=== PATIENT | female | born 1995 | race Caucasian/White ===

== ENCOUNTER → 2018-01-28 23:05 | Observation (INO) ==
[2018-01-28 22:59] LABS: Bilirubin,Urine Negative (Negative); Blood,Urine Negative (Negative); Clarity,Urine Clear (Clear); Color,Urine Yellow (Yellow); Glucose,Urine (UA) Normal (Normal); Ketones,Urine Negative (Negative); Leukocyte Esterase,Urine Trace (Negative); Nitrite,Urine Negative (Negative); Protein,Urine Negative (Neg-Trace); Specific Gravity,Urine < 1.005 (1.010-1.025); Urobilinogen,Urine Normal (Normal)
--- NOTE | 2018-01-28 23:02 | OB/GYN Progress Note ---
Date of Encounter: 01/29/18 Time of Encounter: 22:58 - Assessment and Plan (1) 29 weeks gestation of Status: Acute (2) Encounter for suspected PROM, with rupture of membranes not found Status: Acute Pt states back pain has stopped since arrival,- CVA tenderness, UA negative, Speculum exam shows normal white vaginal discharge of , ferning negative. Cervix closed. Discharged home with and when to return to triage precautions. Pt verbalizes understanding. Subjective - Subjective Interval history: 29+2 presents to triage with complaints of back pain and leaking of fluid. Pt states at 2130 this evening she was sitting outside, had sharp pain in her back and then stood up and her shorts were wet. Has had occasional back pain since. Reports good movement, denies vaginal bleeding. Antepartum ROS: loss of fluid, movement normal, contractions, no vaginal bleeding Objective - Vital Signs Vital Signs: Intake and Output 01/28/18 01/28/18 01/28/18 07:59 15:59 23:59 Other: Weight 112.037 kg Patient Weight 01/28/18 23:59 Weight 112.037 kg - Exam FHR: auscultation normal FHR comments: Baseline 135 Abdomen: Present: soft, gravid Cervical dilation: Closed/thick/high
[2018-01-28 23:11] LABS: Amphetamine Screen,Urine Negative ng/mL (Cutoff=1000); Barbiturate Screen,Urine Negative ng/mL (Cutoff=200); Benzodiazepines Screen,Urine Negative ng/mL (Cutoff=200); Cannabinoid Screen,Urine Negative ng/mL (Cutoff = 50); Cocaine Screen,Urine Negative ng/mL (Cutoff= 300); Opiate Screen,Urine Negative ng/mL (Cutoff=300); Phencyclidine Screen,Urine Negative ng/mL (Cutoff=25)
[2018-01-28 23:16] LABS: Squamous Epithelial Cell,Urine Few per lpf (None-Few); WBC,Urine 0-3 per hpf (0-3)
== END | disposition home or self-care (01) ==
LOC: 1NENULAB
PROVIDERS: ADMIT Obstetrics & Gynecology; ATTEND Obstetrics & Gynecology

== ENCOUNTER 2018-03-28 19:10 | Observation (INO) ==
[2018-03-28 19:41] LABS: Bilirubin,Urine Small (Negative); Blood,Urine Negative (Negative); Clarity,Urine Cloudy (Clear); Color,Urine Orange (Yellow); Glucose,Urine (UA) Normal (Normal); Ketones,Urine Trace mg/dL (Negative); Leukocyte Esterase,Urine Small (Negative); Nitrite,Urine Negative (Negative); Protein,Urine 30 mg/dL (Neg-Trace); Specific Gravity,Urine > 1.030 (1.010-1.025); Urobilinogen,Urine Normal (Normal)
[2018-03-28 19:44] LABS: Squamous Epithelial Cell,Urine Many per lpf (None-Few)
[2018-03-28 19:57] LABS: Bacteria,Urine Moderate per hpf (None-Few); Mucus,Urine Many (Few); RBC,Urine 0-3 per hpf (0-3); WBC,Urine 15-30 per hpf (0-3)
[2018-03-28 20:11] LABS: Amphetamine Screen,Urine Negative ng/mL (Cutoff=1000); Barbiturate Screen,Urine Negative ng/mL (Cutoff=200); Benzodiazepines Screen,Urine Negative ng/mL (Cutoff=200); Cannabinoid Screen,Urine Negative ng/mL (Cutoff = 50); Cocaine Screen,Urine Negative ng/mL (Cutoff= 300); Opiate Screen,Urine Negative ng/mL (Cutoff=300); Phencyclidine Screen,Urine Negative ng/mL (Cutoff=25)
[2018-03-28 20:48] LABS: Candida DNA DETECTED (Not Detect); Gardnerella DNA DETECTED (Not Detect); Trichomonas DNA Not Detected (Not Detect)
--- NOTE | 2018-03-28 21:00 | Discharge Summary ---
Date of Encounter: 03/28/18 Time of Encounter: 21:00 - Discharge Diagnosis (1) 38 weeks gestation of Priority: Primary Status: Acute Comments: Follow-up with Gricelda this week as scheduled Labor parameters discussed Increase oral fluids up to 1 gallon per day Discharge home (2) Vulvovaginal candidiasis Priority: Secondary Status: Acute Comments: Clomitrazole 1% one applicatorful at bedtime 7 days (3) Bacterial vaginosis Priority: Secondary Status: Acute Comments: Metronidazole 500 mg twice a day 7 days - Discharge Medications Prescriptions: Clotrimazole 1% CRM [Lotrimin 1%] 1 appl VG HS #1 tube metroNIDAZOLE [Metronidazole] 500 mg PO BID #14 tablet Home Medications: Clotrimazole 1% CRM [Lotrimin 1%] 1 appl VG HS #1 tube 03/28/18 [Rx] Vits96/Iron Fum/Folic [ Tablet] 1 each PO DAILY 03/28/18 [ History] metroNIDAZOLE [Metronidazole] 500 mg PO BID #14 tablet 03/28/18 [Rx] Allergies/Adverse Reactions: 3 Allergy/AdvReac Type Severity Reaction Status Date / Time Amoxicillin Allergy Anaphylaxis Verified 03/28/18 19:31 Penicillins [PCN] Allergy Anaphylaxis Verified 03/28/18 19:31 Data Procedures and tests throughout hospitalization: Laboratory Tests 03/28/18 03/28/18 03/28/18 19:27 19:27 19:46 Urine Color [place] A Urine Clarity Cloudy A Urine pH 6.0 Ur Specific [place] > 1.030 H Urine Protein 30 H Urine Glucose (UA) Normal Urine Ketones Trace H Urine Blood Negative Urine Nitrite Negative Urine Bilirubin Small H Urine Urobilinogen Normal Ur Leukocyte Esterase Small H Urine Microscopic RBC 0-3 Urine Microscopic WBC 15-30 H Ur Squamous Epith Cells Many H Urine Bacteria Moderate H Urine Mucus Many H Ur Culture Indicated? NO. A Urine Opiates Screen Negative Ur Barbiturates Screen Negative Ur Phencyclidine Scrn Negative Ur Amphetamines Screen Negative U Benzodiazepines Scrn Negative Urine Cocaine Screen Negative U Marijuana (THC) Screen Negative Ur Drug Screen Interp See Below Aspen species DNA DETECTED A Gardnerella DNA Probe DETECTED A Trichomonas DNA Probe Not Detected Labs on day of discharge: Labs from last 24 hours 03/28/18 03/28/18 03/28/18 19:46 19:27 19:27 Urine Color [place] A Urine Clarity Cloudy A Urine pH 6.0 Ur Specific [place] > 1.030 H Urine Protein 30 H Urine Glucose (UA) Normal Urine Ketones Trace H Urine Blood Negative Urine Nitrite Negative Urine Bilirubin Small H Urine Urobilinogen Normal Ur Leukocyte Esterase Small H Urine Microscopic RBC 0-3 Urine Microscopic WBC 15-30 H Ur Squamous Epith Cells Many H Urine Bacteria Moderate H Urine Mucus Many H Ur Culture Indicated? NO. A Urine Opiates Screen Negative Ur Barbiturates Screen Negative Ur Phencyclidine Scrn Negative Ur Amphetamines Screen Negative U Benzodiazepines Scrn Negative Urine Cocaine Screen Negative U Marijuana (THC) Screen Negative Ur Drug Screen Interp See Below Aspen species DNA DETECTED A Gardnerella DNA Probe DETECTED A Trichomonas DNA Probe Not Detected Date of admission: 03/28/18 19:10 Discharging clinician: Jimena Griffin Anticipated date of discharge: 03/28/18 - Patient Status Disposition: Home, Self-Care Condition: Good Functional capacity at discharge: independent ambulation Overall status at discharge: patient is progressing back to baseline - Discharge Instructions Follow Up With: Gricelda Price CNM [Non-Partnered Physician] - - Diet and Activity Activity: increase activity as tolerated Diet: regular diet Hospital Course BOOKING MANAGER Reason for admission: other Discharge diagnosis: other Hospital course: Patient presented to labor and delivery status post 3 days of frequent contractions stating she has been renata every 5-8 minutes since 8:00 this morning. She reports a loss of her mucous plug on Tuesday. She endorses good movement and denies leakage of fluid and vaginal bleeding. Urine studies showed severe dehydration and vaginosis panel was positive for bacterial vaginosis and [place]en. Prescriptions were sent for Flagyl 500 mg twice a day 7 days and clotrimazole 1% nightly 7 days. Patient was discharged home with instructions to increase hydration and take medications. She does plan to follow-up on Tuesday at her appointment. Time Attestation: Total time spent providing and/or coordinating discharge services: Time Spent: Less than 30 minutes Exam - Constitutional General appearance IM: A&O X 3 - Respiratory Respiratory exam: Present: CTAB - Cardiovascular Cardiovascular exam IM: Present: RRR, +S1, +S2 - GI/Abdominal GI/Abdominal exam IM: normal bowel sounds, no peritoneal signs - Rectal Rectal exam: deferred - Uterine Tone: Firm - Extremities Exam Extremities exam IM: Present: normal capillary refill, normal inspection, radial pulses palpable and symmetrical - Neurological Exam Neurological exam: alert, CN II-XII intact, normal gait, oriented X3, reflexes normal, no focal deficits, strengths equal and symetr throughout - VTE Reasons for not Prescribing Prophylaxis: Treatment not Indicated - Low risk for VTE
== END 2018-03-28 21:27 | disposition home or self-care (01) ==
LOC: 1NENULAB
PROVIDERS: ADMIT Advanced Practice Midwife; ATTEND Advanced Practice Midwife

== ENCOUNTER 2018-04-07 07:23 | Inpatient (IN) ==
[2018-04-07] MEDS ORDERED: *HR* Nalbuphine 10 MG/ML AMPUL IVP PRN (07:38)
[2018-04-07] MEDS ORDERED: Metoclopramide 10 MG/2 ML VIAL IVP PRN (07:38)
[2018-04-07] MEDS ORDERED: Famotidine 20 MG/2 ML VIAL IVP PRN (07:38)
[2018-04-07] MEDS ORDERED: miSOPROStol 25 MCG TABLET PO ONE (07:45)
[2018-04-07] MEDS ORDERED: Ringers Solution, Lactated 1,000 ML IVC SCH (07:45)
[2018-04-07 08:49] LABS: Basophils % 0.4 %; Eosinophils # 0.1 K/mcL (0.0-0.6); Eosinophils % 0.5 %; Hematocrit 40.7 % (35.3-44.9); Hemoglobin 14.1 g/dL (11.5-15.4); Immature Granulocytes % 0.7 % (0-4); Lymphocytes # 1.3 K/mcL (0.6-4.6); Lymphocytes % 12.1 %; Mean Corpuscular HGB Conc 34.6 g/dL (31.6-35.5); Mean Corpuscular Hemoglobin 31.5 pg (28.0-33.3); Mean Corpuscular Volume 91.1 fL (83.0-100.0); Mean Platelet Volume 11.9 fL (9.4-12.4); Monocytes # 0.7 K/mcL (0.0-1.3); Monocytes % 6.1 %; Neutrophils # 8.9 K/mcL (1.6-8.9); Platelet Count 227 K/mcL (140-400); Red Blood Count 4.47 M/mcL (3.82-4.97); Red Cell Distribution Width 13.1 % (11.5-14.5); Segmented Neutrophils % 80.2 %
[2018-04-07 09:14] LABS: Amphetamine Screen,Urine Negative ng/mL (Cutoff=1000); Barbiturate Screen,Urine Negative ng/mL (Cutoff=200); Benzodiazepines Screen,Urine Negative ng/mL (Cutoff=200); Cannabinoid Screen,Urine Negative ng/mL (Cutoff = 50); Cocaine Screen,Urine Negative ng/mL (Cutoff= 300); Opiate Screen,Urine Negative ng/mL (Cutoff=300); Phencyclidine Screen,Urine Negative ng/mL (Cutoff=25)
--- NOTE | 2018-04-07 10:51 | OB/GYN History & Physical ---
Date of Encounter: 04/07/18 Time of Encounter: 10:49 Assessment and Plan (1) 39 weeks gestation of Current visit: Yes Status: Acute Admit for IOL GBS negative Cytotec Consider Pitocin and/or AROM Anticipate vaginal delivery POC per consult with Dr Waller History of Present Illness Chief complaint: IOL HPI: Ms. Hubbard is a 22 year old at 39 weeks and 1 day that presents to labor and delivery for elective induction of labor. She has had a normal course and been followed by the midwives. She states positive movement. She denies leaking of fluid, vaginal bleeding, contraction, cramping, headache, vision changes, and epigastric pain. Labs: GBS negative Varicella nonimmune Rubella immune HIV NR RPR NR Hep B NR Blood type O+ Past Med Surg Social Fam HX - Past Medical History Medical history: asthma Psychiatric history: anxiety - Past Surgical History Surgical History: other Additional surgical history: ear tubes, T&A - Social History Smoking Status: Former smoker Smokeless Tobacco Status: No Alcohol use: none Drug use: none - Family History Father Adopted: [place]: Chris Family Member Ethnicity: Non- Hx Family Cardiac Disorders: Yes (HTN) Hx Family Respiratory Disorders: No Hx Family Cancer: No Hx Family GI Disorders: No Hx Family Endocrine Disorder: No Hx Family Neuromuscular Disorders: No Hx Family Neurologic Disorders: No Hx Family HEENT Disorders: No Hx Family Autoimmune Disorders: No Obstetrical History - Pregnancies : 1 Para: 0 Term: 0 : 0 Ab's: 0 Livin Medications and Allergies Vits96/Iron Fum/Folic [ Tablet] 1 each PO DAILY 03/28/18 [History] Allergy/AdvReac Type Severity Reaction Status Date / Time Amoxicillin Allergy Anaphylaxis Verified 03/28/18 19:31 Penicillins [PCN] Allergy Anaphylaxis Verified 03/28/18 19:31 Review of System OB All systems PM: reviewed and no additional remarkable complaints except as stated Exam - Constitutional Constitutional: well developed, well nourished, no acute distress, obese - HEENT HEENT: Normocephaly, Mucus Membranes Moist - Neck Neck exam: full ROM - Lungs Respiratory exam: CTAB - Cardiovascular Cardiovascular exam: RRR, +S1, +S2 - Abdomen Abdomen: Present: bowel sounds normal, gravid, non tender - Extremities Extremities exam: normal capillary refill, normal inspection, radial pulses palpable and symmetrical Deep Tendon Reflex Grade: 2+ Normal - Vagina Vagina: Present: normal moisture - Cervix Dilation: 4 Effacement: 80 Station: -1 Results Result Diagrams: 04/07/18 08:13 All other labs normal. - VTE Reasons for not Prescribing Prophylaxis: Treatment not Indicated - Low risk for VTE
[2018-04-07] MEDS ORDERED: Epidural Premix (fent/bupiv) 110 ML EP SCH (14:15)
[2018-04-07] MEDS ORDERED: Oxytocin 20 units/ LR 1000 mL 20 UNIT/1,000 ML BAG IVC ONE ×3 (16:54→22:05)
--- NOTE | 2018-04-07 19:18 | OB Labor Progress Note ---
Date of Encounter: 04/07/18 Time of Encounter: 13:27 Labor Progress Note - Subjective Subjective: Patient resting in bed comfortably - Vital Signs Vital Signs: VSS - Cervix Cervix: 3-4/90/-1 BBOW with Ctx - Heart Tones Heart Tones: 125 moderate variability accels 15x15 present Category I tracing - [place]: Contractions every 3-5 minutes - Interventions Interventions: AROM for moderate amount of clear fluid - Plan Plan: Continue routine labor management GBS negative Consider pitocin if needed for augmentation Patient may have nubain/epidrual upon request Anticipate vaginal delivery POC per consult with Dr Waller
--- NOTE | 2018-04-07 19:27 | OB Labor Progress Note ---
Date of Encounter: 04/07/18 Time of Encounter: 15:04 Labor Progress Note - Subjective Subjective: Crying through contractions. Asking for epidural - Vital Signs Vital Signs: VSS - Cervix Cervix: 5-6/90-100/0 - Heart Tones Heart Tones: 120 category I - [place]: Contractions every 3-5 minutes - Interventions Interventions: IUPC and FSE placed without difficulty - Plan Plan: Continue routine labor management GBS negative Waiting for epidural placement Consider pitocin if needed for augmentation Anticipate vaginal delivery POC per consult with Dr Waller
--- NOTE | 2018-04-07 19:30 | Anesthesia Procedures ---
Date of Encounter: 04/07/18 Time of Encounter: 15:28 Procedures: Anesthesia - Epidural/Spinal Patient ID/Chart reviewed: Yes Patient examined: Yes OB Eval: Gestational age: 39.1 OB Eval: : 1 OB Eval: Hx Para: 0 OB Eval: Dilated at (cm): 6 OB Eval: Contractions: Non-stressed pattern Consent Obtained: Yes Supplemental Oxygen: None/Room Air Site Prep: Aseptic Technique, Sterile prep and drape, Povidone-Iodine 1% Patient position: upright Local Anesthetic: Lidocaine 1% Amount of Local Anesthetic used: 3 Touhy Needle Gauge: 18 Touhy Needle Depth (cm): 10 Catheter Depth at Skin (cm): 20 Test Dose (1.5% Lido + Epi): Volume given (mls): 5 Test Dose Result: Negative Loading Dose: Other: 10mls of epidural pharm bag premix solution Loading Dose Administered: Thru Catheter Infusion Med: 0.125% Bupivacaine w/ 2 mcg/ml Fentanyl Infusion Rate (mls/hr): 16 ([id number] pcea) Catheter Secured in Place: Tegaderm, Tape Interspace Used: L4-L5 Loss of Resistance (RAIN): Yes Blood: No CSF: No Paresthesia: No Procedure: pt tolerated procedure well. no complications. vss. fhr stable.
--- NOTE | 2018-04-07 19:46 | OB/GYN Procedure Note ---
Delivery - Delivery Date: 04/07/18 Provider: Jimena Mares Intrapartum events: none Delivery induction: misoprostol Delivery augmentation: rupture of membranes Delivery monitor: external FHT, external uterine, internal FHT, internal uterine Anesthesia: epidural Quantitated Blood Loss: 150 - (s) Infant A Infant Delivery Date: 04/07/18 Infant Delivery Time: 18:37 Presentation: vertex, compound (left hand) Position: WALTER Route of delivery: Gender: Female Viability: Viable Pounds: 6 Ounces: 3 Weight Gram: 2810 kg at 1 minute: 9 at 5 mins: 9 Shoulder Dystocia: not encountered Specimens collected: cord blood Placenta: spontaneous Cord: 3 umbilical vessels - Repair Episiotomy: none Laceration Description: Periurethral (bilateral periclitoral) - Complications Delivery complications: none Delivery comments: Patient progressed to complete and began coached pushing to of viable, vigorous female infant in the AWLTER position with a left compound hand. No nuchal cord, no meconium, and no shoulder dystocia encountered. placed on maternal abdomen, warmed, dried and stimulated. Apgars 9 & 9 at one and five minutes of age respectively. Cord double clamped and cut with assistance of patient's partner after cessation of pulsations. Placenta delivered spontaneously and appears grossly intact with 3 vessel cord. Upon inspection bilateral periclitoral lacerations noted. repaired with 4-0 monocryl in the usual fashion. EBL 150mL. Uterus firm with scant bleeding and at U/2 after repair complete. Patient and infant in recovery for [address] Waller notified of delivery. - Disposition Mom disposition: stable in LDR disposition: stable in LDR
[2018-04-07] MEDS ORDERED: Acetaminophen 325 MG TABLET PO PRN (22:05)
[2018-04-07] MEDS ORDERED: Benzocaine/Menthol 56 GM AEROSOL SPRAY TP PRN (22:05)
[2018-04-07] MEDS: Oxytocin 20 units/ LR 1000 mL 20 UNIT/1,000 ML BAG IVC SCH (22:26)
[2018-04-07] MEDS: Ibuprofen 600 MG TABLET PO PRN (22:45)
[2018-04-08] MEDS: Oxytocin 20 units/ LR 1000 mL 20 UNIT/1,000 ML BAG IVC SCH (02:43)
[2018-04-08] MEDS: Ibuprofen 600 MG TABLET PO PRN (08:28)
[2018-04-08 08:39] VITALS: BP 124/84
[2018-04-08] MEDS ORDERED: Prenatal Vit/FA 1 EACH TABLET PO SCH (09:00)
--- NOTE | 2018-04-08 09:08 | Discharge Summary ---
Date of Encounter: 04/08/18 Time of Encounter: 09:02 - Discharge Diagnosis (1) Vaginal delivery Priority: Primary Status: Acute Comments: Feeling well. Tolerating regular diet Lochia light Voiding independently Passing flatus, no BM yet Ambulating independently Vital signs stable Discharge home today (2) Breast feeding status of mother Priority: Secondary Status: Acute Comments: Community resources provided - Discharge Medications Prescriptions: Ibuprofen [Motrin] 600 mg PO Q6HR PRN #30 tablet PRN Reason: Cramping Docusate [Colace] 100 mg PO BID #30 capsule Home Medications: Vits96/Iron Fum/Folic [ Tablet] 1 each PO DAILY 03/28/18 [History] Acetaminophen [Tylenol] 650 mg PO Q6HR PRN tablet 04/08/18 [Rx] Benzocaine/Menthol [place] [Dermoplast [place]] 1 appl TP QID PRN aerosol 04/08/18 [Rx] Docusate [Colace] 100 mg PO BID #30 capsule 04/08/18 [Rx] Ibuprofen [Motrin] 600 mg PO Q6HR PRN #30 tablet 04/08/18 [Rx] Allergies/Adverse Reactions: Allergy/AdvReac Type Severity Reaction Status Date / Time Amoxicillin Allergy Anaphylaxis Verified 03/28/18 19:31 Penicillins [PCN] Allergy Anaphylaxis Verified 03/28/18 19:31 Data Procedures and tests throughout hospitalization: Laboratory Tests 04/07/18 04/07/18 08:13 08:13 WBC 11.1 RBC 4.47 Hgb 14.1 Hct 40.7 MCV 91.1 MCH 31.5 MCHC 34.6 RDW 13.1 Plt Count 227 MPV 11.9 Immature Gran % 0.7 Seg Neutrophils % 80.2 Lymphocytes % 12.1 Monocytes % 6.1 Eosinophils % 0.5 Basophils % 0.4 Neutrophils # 8.9 Lymphocytes # 1.3 Monocytes # 0.7 Eosinophils # 0.1 Basophils # 0.0 Urine Opiates Screen Negative Ur Barbiturates Screen Negative Ur Phencyclidine Scrn Negative Ur Amphetamines Screen Negative U Benzodiazepines Scrn Negative Urine Cocaine Screen Negative U Marijuana (THC) Screen Negative Ur Drug Screen Interp See Below Labs on day of discharge: Labs from last 24 hours 04/07/18 08:13 Urine Opiates Screen Negative Ur Barbiturates Screen Negative Ur Phencyclidine Scrn Negative Ur Amphetamines Screen Negative U Benzodiazepines Scrn Negative Urine Cocaine Screen Negative U Marijuana (THC) Screen Negative Date of admission: 04/07/18 07:23 Primary care physician: PCP NONE Consults: 04/07/18 22:05 Consult to Accounts Manager [CONS] Routine Comment: Vaginal delivery, consult needed Discharging clinician: Jimena Griffin Anticipated date of discharge: 04/08/18 - Patient Status Disposition: Home, Self-Care Condition: Good Functional capacity at discharge: independent ambulation Overall status at discharge: patient is progressing back to baseline - Discharge Instructions Follow Up With: NONE,PCP [Primary Care Provider] - Jimena Mares CNM [Advanced Practice Nurse] - - Diet and Activity Activity: increase activity as tolerated Diet: regular diet Hospital Course Procedures: Reason for admission: induction of labor, IUP at term Delivery: Episiotomy: none Laceration: other (bilateral periurethral) Other procedures: none complications: none Discharge diagnosis: IUP at term delivered [place] baby: female Time Attestation: Total time spent providing and/or coordinating discharge services: Time Spent: Less than 30 minutes Exam - Constitutional Vitals: Temp Pulse Resp BP Pulse Ox 97.5 F L 83 12 124/84 96 04/08/18 08:30 04/08/18 08:30 04/08/18 08:30 04/08/18 08:30 04/08/18 08:30 General appearance IM: A&O X 3 - Respiratory Respiratory exam: Present: CTAB - Cardiovascular Cardiovascular exam IM: Present: RRR, +S1, +S2 - GI/Abdominal GI/Abdominal exam IM: normal bowel sounds, no peritoneal signs - Rectal Rectal exam: deferred - Uterine Tone: Firm Uterus Position: 1 Finger Below Umbilicus, Midline - Extremities Exam Extremities exam IM: Present: normal capillary refill, normal inspection, radial pulses palpable and symmetrical - Neurological Exam Neurological exam: alert, CN II-XII intact, normal gait, oriented X3, reflexes normal, no focal deficits, strengths equal and symetr throughout - Psychiatric Additional comments: Patient reports history of anxiety and depression. Signs and symptoms of depression discussed with patient and partner and both verbalize understanding of when to seek help. - Skin Additional comments: Breasts: Soft, nontender. Nipples intact without erythema.
== END 2018-04-08 21:30 | disposition home or self-care (01) | DRG 560 ==
LOC: 1NENULAB 07:23 → 1NENUOBS 21:44
PROVIDERS: ADMIT Advanced Practice Midwife; ATTEND Advanced Practice Midwife